=== PATIENT | male | born 1955 | race Caucasian/White ===

== ENCOUNTER 2018-01-05 14:38 | Emergency (ER) | payer SELFPAY ==
[~2018-01-05] VITALS: Ht 182.9 cm; Wt 97.1 kg
[2018-01-05 14:48] VITALS: Ht 182.9 cm; Wt 97.1 kg
[2018-01-05 15:48] LABS: BASOPHIL % 0.5 % (0-2); PLATELET COUNT 229 x10^3mcL (130-400); RED CELL DISTRIBUTION WIDTH 12.6 % (11.5-14.5)
[2018-01-05 16:01] LABS: ALBUMIN 3.8 g/dL (3.4-5.0); BILIRUBIN TOTAL 0.8 mg/dL (0.20-1.00); CALCIUM 9.3 mg/dL (8.5-10.1); CARBON DIOXIDE 24.1 mmol/L (21-32); CREATININE SERUM 1.3 mg/dL (0.7-1.3); TOTAL PROTEIN, SERUM 7.2 g/dL (6.4-8.2)
[2018-01-05 17:32] LABS: microscopic required? NO
[2018-01-05 18:20] LABS: UA SPECIFIC GRAVITY 1.015 (1.005-1.035); urine erythrocyte NEGATIVE (NEGATIVE)
[2018-01-05 18:30] LABS: AMPHETAMINE QUAL UR NONE DETECTED (NEG <=1000)
[2018-01-05 19:02] LABS: AMYLASE 33 U/L (25-115); LIPASE 216 IU/L (73-393); MAGNESIUM 1.8 mg/dL (1.8-2.4)
[2018-01-05 19:04] LABS: CHOLESTEROL 220 mg/dL (<200); CHOLESTEROL/HDL RATIO 7.6; HDL CHOLESTEROL 29 mg/dL (40-60); TRIGLYCERIDES 467 mg/dL (<150)
[2018-01-05 19:14] LABS: FREE T4 1.22 ng/dL (0.76-1.46); FREE THYROXINE INDEX 2.7 ug/dL (1.4-4.5)
[2018-01-05 19:49] LABS: T3 TOTAL 0.9 ng/mL
[2018-01-06 05:41] LABS: CALCIUM 8.3 mg/dL (8.5-10.1); CARBON DIOXIDE 27.2 mmol/L (21-32); CHLORIDE SERUM 98 mmol/L (98-107); CREATININE SERUM 1.1 mg/dL (0.7-1.3); GFR1 > 60 mL/min; GLUCOSE SERUM 278 mg/dL (74-106); POTASSIUM SERUM 3.8 mmol/L (3.5-5.1); SODIUM SERUM 131 mmol/L (136-145)
[2018-01-06 05:58] LABS: BASOPHIL % 0.7 % (0-2); PLATELET COUNT 203 x10^3mcL (130-400); RED CELL DISTRIBUTION WIDTH 12.6 % (11.5-14.5)
[2018-01-06 11:43] VITALS: BP 117/79
== END 2018-01-06 12:42 | disposition home or self-care (01) ==
LOC: ED 14:38
PROVIDERS: Emergency Medicine; Family Medicine
DX: R07.9 Chest pain, unspecified (principal); E11.9 Type 2 diabetes mellitus without complications; I10 Essential (primary) hypertension
CPT/HCPCS: 76770; 83880; 84439; 85378; J1815; J7030; J8597; Q0092